=== PATIENT | male | born 1965 | race Caucasian/White ===

== ENCOUNTER 2016-10-21 06:19 | Inpatient (IN) | payer OTHER ==
--- NOTE | 2016-10-03 15:50 | HP ---
ADMISSION HISTORY AND PHYSICAL: DATE OF ADMISSION: 10/21/16 ATTENDING SURGEON: Dr. Bart Savage. CHIEF COMPLAINT: Rectal cancer. HISTORY OF PRESENT ILLNESS: This is a 51-year-old male who had been experiencing intermittent loose stools and/or rectal bleeding for the past 1-1/ 2 to 2 years. He attributed the changes to his diet and/or hemorrhoids. Eventually, he did connect with Dr. Soni for a primary care visit, which was his first in a number of years. He was referred for colonoscopy. He had never had any prior study. Colonoscopy was performed by Dr. Quintero on 05/21/16. This showed a friable 3- quarters circumferential lesion consistent with a carcinoma beginning from 10 to 12 cm from the anal verge and extending proximally about 5 cm. There were 2 additional polyps, one in the sigmoid colon and one in the ascending colon. Both of those were removed and pathology showed tubular adenoma. The friable lesion at 11 cm was positive for adenocarcinoma. The patient underwent CT of the abdomen and pelvis on 05/27/16 confirming the presence of a mass in the rectosigmoid colon measuring 4.9 x 2.6 x 4.3 cm with a couple of mildly prominent lymph nodes measuring up to 0.6 cm. His CEA at that time was 4.2. ALT and AST were in the 70s and have since come down slightly (he does drink beer on a regular basis). Subsequent CT of the chest on 06/10/16 showed a few small (less than or equal to 3 mm) right upper lobe peripheral nodules. MRI of the pelvis from that same date showed 3.5 x 4.1 x 2.8 cm rectosigmoid lesion with no apparent infiltration via on the muscularis or into perirectal fat. Lymph nodes were noted to be prominent, but less than or equal to 0.4 cm. The patient was seen by Dr. Samira Patel and Dr. Bart Wright and has completed neoadjuvant chemoradiation therapy with 5-FU, with radiation therapy completed on 07/24/16. Overall, he tolerated the therapy fairly well. He did have some anal pruritus that has responded well to local agents. He had met Dr. Savage previously when a PowerPort was placed for his chemotherapy. He met again with Dr. Savage on 09/15/16 and again today to review the indications for surgery, the risks, benefits, and alternatives. The patient understands the expected perioperative course and would like to proceed as scheduled with laparoscopic-assisted low anterior resection. There is no known family history of colorectal cancer. PAST MEDICAL HISTORY: 1. Hypertension. 2. He has some mild psoriasis. SURGERIES: He underwent right knee arthroscopy for a meniscal injury and arthroscopy of the right elbow. 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 CURRENT MEDICATIONS: 1. Metoprolol succinate extended release 25 mg once daily. 2. Amlodipine 10 mg once daily. 3. Fluocinonide 0.05% topically daily p.r.n. DRUG ALLERGIES: None known. FAMILY HISTORY: Father is alive with history of hypertension and coronary artery disease. Mother is alive and in good health. There is no known family history of anesthesia problems, bleeding or clotting disorders. SOCIAL HISTORY: The patient lives with his significant other, though states that she has been in the hospital for the past 6 weeks because of an infection problem. He also notes that his son was involved in a serious auto injury and sustained significant head injury and is in a rehab facility in [place], [place], and is stable, but overall has significant effects from his traumatic brain injury. 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 He is a former smoker of up to 1 pack per day for at least 20 years. He quit 5 years ago. He continues to chew tobacco on the order of 1 can per day. He also drinks approximately a six-pack of beer per day. He smokes marijuana on occasion. No other drug use reported. REVIEW OF SYSTEMS: General: No recent constitutional symptoms or acute illnesses other than described in the HPI. He states his weight has remained fairly stable and he has a good appetite. Cardiovascular: No chest pain or palpitations. He is treated for hypertension. Respiratory: No history of asthma or chronic cough. Smoking history as noted. GI: As above per HPI. No upper GI symptoms. : No problems reported other than some changes related to urination, presumably secondary to his radiation therapy. Endocrine: No diabetes or thyroid dysfunction. PHYSICAL EXAMINATION GENERAL: Well-nourished, well-developed male in no acute distress. VITAL SIGNS: Height 74 inches, weight 220 pounds, temperature 98.3, blood pressure 140/82, pulse 76, respirations 16. HEENT: Pupils equal, round, and reactive. EOMs intact. No conjunctival pallor. Oropharynx: Teeth in good repair. No intraoral lesions. NECK: No lymphadenopathy, thyromegaly, or masses. LUNGS: Clear to auscultation. No rales or wheezes. HEART: Regular rate and rhythm. ABDOMEN: Flat, nondistended. There is a visible bulge at the umbilicus which is palpably reducible and nontender and consistent with a small umbilical hernia (he states that this has been unchanged since childhood). Abdomen is otherwise soft, nontender, and without palpable masses or organomegaly. EXTREMITIES: No edema. Feet not examined directly. GENITALIA AND RECTAL: Not done. BACK: No spinous process or CVA tenderness. NEUROLOGICAL: Grossly intact. SKIN: Warm and dry. No suspicious rashes or lesions. IMPRESSION: Rectal cancer. PLAN: Laparoscopic-assisted low anterior resection. The patient will complete standard preoperative mechanical bowel prep with oral antibiotics. YOLA ORDONEZ CC: Dr. Royal Soni; Dr. Samira Patel; Dr. Bart Wright; Dr. Patrick Quintero* [id number]/[facility] #: [id number] [facility]
[~2016-10-21 06:19] MED LIST: Buffered Lidocaine 1% SYR 3ML* 3 ML/SYR SYRINGE INTRADERM ONE; Famotidine IV* 10 MG/ML 2 ML (20 mg) IV ONE; PROCHLORPERAZINE INJ 5 MG/ML 2 ML VIAL IV PRN; Scopolamine 1.5 mg* PATCH TRANSDERM ONE
[2016-10-21] MEDS ORDERED: Scopolamine 1.5 mg* PATCH ONE (06:58)
[2016-10-21] MEDS ORDERED: Heparin VIAL(*) 5000 UNITS/ML VIAL (FIVE THOUSAND) ONE (06:58)
[2016-10-21] MEDS ORDERED: Famotidine IV* 10 MG/ML 2 ML (20 mg) ONE (06:58)
[2016-10-21] MEDS ORDERED: Ertapenem* 1 GM in NS 0.9% 50 ML* 50 ML IVPB ONE (07:00)
[2016-10-21] MEDS ORDERED: Iohexol 180 (CONTRAST) 10 ML SDV IV ONE (07:07)
[2016-10-21] MEDS ORDERED: Bupivacaine 0.5% W/EPI SDV* 30 ML VIAL ONE (07:07)
[2016-10-21] MEDS ORDERED: KETAMINE HCL* 50 MG/ML 10 ML VIAL ONE (07:33)
[2016-10-21] MEDS ORDERED: fentaNYL* 50 MCG/ML 5 ML VIAL (250 MCG VIAL) ONE (07:33)
[2016-10-21] MEDS ORDERED: Atracurium* 10 MG/ML 10 ML VIAL ONE ×2 (07:33→11:26)
[2016-10-21] MEDS ORDERED: Midazolam* 1 MG/ML 10 ML VIAL (10 MG) ONE (07:33)
[2016-10-21] MEDS ORDERED: Glycopyrrolate IV* 0.2 MG/ML 1 ML VIAL ONE ×2 (08:59→12:47)
[2016-10-21] MEDS ORDERED: Phenylephrine INJ* 10 MG/ML 1 ML VIAL (10 MG) ONE (08:59)
[2016-10-21] MEDS ORDERED: Neostigmine Methylsulfate* 2 MG/2 ML SYRINGE ONE (08:59)
[2016-10-21] MEDS ORDERED: Propofol* 10 MG/ML 20 ML BTL IV PUSH ONE (08:59)
[2016-10-21] MEDS ORDERED: Dexamethasone IV* 4 MG/ML 1 ML (4 MG) ONE (08:59)
[2016-10-21] MEDS ORDERED: Lidocaine 2% PF * 5 ML VIAL ONE (08:59)
[2016-10-21] MEDS ORDERED: Ondansetron INJ* 2 MG/ML VIAL ONE (08:59)
[2016-10-21] MEDS ORDERED: Bupivacaine 0.5% SDV PF* 30 ML VIAL ONE (08:59)
[2016-10-21] MEDS ORDERED: EPHEDrine (Pressors)* 50 MG/ML VIAL ONE (09:31)
--- NOTE | 2016-10-21 09:34 | RAD ---
INDICATION: Bilateral retrograde pyelograms and stent placement. Rectal cancer. COMPARISON: May 27, 2016 CT. TECHNIQUE: 14 seconds fluoroscopy. FINDINGS: Bilateral retrograde pyelograms are negative for hydronephrosis. Bilateral ureteral stents placed. IMPRESSION: Procedural fluoroscopy. CPT II Codes: 6045F
[2016-10-21] MEDS ORDERED: PROCHLORPERAZINE INJ 5 MG/ML 2 ML VIAL IV PRN (10:03)
[2016-10-21] MEDS ORDERED: Hetastarch in NS* 500 ML IV PRN (10:03)
[2016-10-21] MEDS ORDERED: Nalbuphine* 20 MG/ML 1 ML VIAL IV PRN (10:03)
[2016-10-21] MEDS ORDERED: Ondansetron INJ* 2 MG/ML VIAL IV PRN (10:03)
[2016-10-21] MEDS ORDERED: Hetastarch in NS* 500 ML IV ONE (10:46)
[2016-10-21] MEDS ORDERED: Morphine INJ* 10 MG/ML 1 ML CARPUJECT ONE ×2 (11:25→14:26)
[2016-10-21] MEDS ORDERED: Ropivacaine 0.2% EPIDURAL* 200 MG/100 ML BAG EPIDURAL ONE (11:39)
[2016-10-21] MEDS ORDERED: Furosemide IV* 10 MG/ML 2 ML VIAL (20 MG) ONE (12:30)
[2016-10-21] MEDS ORDERED: Acetaminophen TAB* 325 MG PO PRN (13:41)
--- NOTE | 2016-10-21 13:47 | PN ---
Progress Note - Progress Note Note: Brief Operative Note: Preop Dx: rectal cancer POstop Dx: same Procedure: Laparoscopy; laparotomy; low anterior resection. (Bilateral ureteral stents placed by Dr. Mcelroy) Anesthesia: GET, epidural Surgeon: Janette Asst: Maliha; YOLA Mcknight; SYLVIA Bunn EBL: 150 ml Fluids: 4500 ml RL; 500 ml Hetastarch Drains: none Specimen: rectosigmoid Findings: dictated
[2016-10-21] MEDS ORDERED: fentaNYL* 50 MCG/ML 2 ML VIAL (100 MCG VIAL) ONE (13:55)
[2016-10-21] MEDS: fentaNYL* 50 MCG/ML 2 ML VIAL (100 MCG VIAL) IV PRN ×4 (13:56→14:29)
[2016-10-21] MEDS ORDERED: NS 0.9% 500 ML* 500 ML IV PRN (14:00)
[2016-10-21] MEDS: Morphine INJ* 2 MG/ML 1 ML CARPUJECT IV PRN ×2 (14:29→14:50)
[2016-10-21] MEDS: HYDROmorphone PCA* 20 MG/20 ML PCA.SYRING PCA SCH (15:49)
[2016-10-21] MEDS: Metoprolol Succinate XL TAB* 25 MG PO SCH (17:20)
[2016-10-21] MEDS: amLODIPine TAB* 5 MG PO SCH (17:20)
[2016-10-21] MEDS: Heparin VIAL(*) 5000 UNITS/ML VIAL (FIVE THOUSAND) SUBCUT SCH ×2 (17:23→22:14)
[2016-10-21] MEDS: Ropivacaine 0.2% EPIDURAL* 200 MG/100 ML BAG EPIDURAL SCH (19:57)
[2016-10-22] MEDS: Ropivacaine 0.2% EPIDURAL* 200 MG/100 ML BAG EPIDURAL SCH ×3 (05:08→20:55)
[2016-10-22] MEDS: Heparin VIAL(*) 5000 UNITS/ML VIAL (FIVE THOUSAND) SUBCUT SCH ×3 (05:55→21:35)
[2016-10-22 06:58] LABS: Hematocrit 37 % (42-52); Hemoglobin 12.6 g/dl (14.0-18.0); Mean Corpuscular HGB Conc 34 g/dl (31-36); Mean Corpuscular Hemoglobin 32 pg (27-31); Mean Corpuscular Volume 96 fL (80-94); Mean Platelet Volume 9 um3 (7.4-10.4); Red Blood Count 3.87 10^6/ul (4.0-5.4); Red Cell Distribution Width 14 % (10.5-15); White Blood Count 9.2 10^3/ul (3.5-10.8)
[2016-10-22 07:10] LABS: BUN/Creatinine Ratio 13.6 (8-20); EGFR African American 61.3 (>60); EGFR Non-African American 47.7 (>60); Potassium 4.5 mmol/L (3.5-5.0)
[2016-10-22 10:53] LABS: Call Hep C TO BE CALLED
--- NOTE | 2016-10-22 11:02 | PN ---
Progress Note - Progress Note Note: Surgery Progress S: POD #1. 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 Has had min UOP overnight; got a bolus this a.m., but none overnight. No N/V. Has been sipping on clears. Denies SOB. O: Vital Signs - 8 hr 10/22/16 10/22/16 10/22/16 03:09 04:00 06:00 Temperature 98.8 F Pulse Rate 56 Respiratory 18 16 16 Rate Blood Pressure 108/68 (mmHg) O2 Sat by Pulse 96 94 94 Oximetry 10/22/16 10/22/16 10/22/16 07:15 07:37 10:00 Temperature 100.4 F Pulse Rate 53 Respiratory 18 18 18 Rate Blood Pressure 118/69 (mmHg) O2 Sat by Pulse 95 95 95 Oximetry Intake and Output Last 24 Hours 10/20/16 10/21/16 10/22/16 10/23/16 06:59 06:59 06:59 06:59 Intake Total 7392 1000 Output Total 1025 Balance 6367 1000 Weight 217 lb 9.6 oz Intake: IV Fluids 6452 1000 ERTAPENEM 1GM 50 HEXTEND 500 LR 4500 1000 LR /c 20KCL 1402 IVPB 500 Hetastarch 500 Oral 440 Output: Wagner 875 Estimated Blood Loss 150 Heart: reg Lungs: few wheezes; doing well w/ IS (2500) Abd: few BS; midline dsg dry, intact; mild to mod bloating/tympany; soft, min tenderness Extr: no edema Urine: bloody Labs: A: s/p Low anterior rsxn for rectal Ca; third spacing and bloody urine as expected; fluid boluses as req'd; OOB and ambulate
[2016-10-22] MEDS: HYDROmorphone PCA* 20 MG/20 ML PCA.SYRING PCA SCH (11:58)
--- NOTE | 2016-10-22 12:24 | PN ---
Progress Note - Progress Note Note: Anesthesia epidural followup. 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 Had decreased urine output overnight, has recieved some fluid boluses. Site ok, s/p low anterior resection, cont current pain control.
--- NOTE | 2016-10-22 15:21 | OP ---
DATE OF OPERATION: 10/21/16 - ROOM #333 DATE OF : 63 SURGEON: Min Mcelroy MD. ANESTHESIOLOGIST: Dr. Mar. ANESTHESIA: General and epidural. PRE-OP DIAGNOSIS: Rectal carcinoma. POST-OP DIAGNOSIS: Rectal carcinoma. OPERATIVE PROCEDURE: Cystoscopy, bilateral retrograde pyelogram, left ureteral stent insertion, and right ureteral catheter insertion. INDICATIONS: Porter Parker Jr. is a 51-year-old gentleman with rectal carcinoma. He is status post radiation therapy and is now being brought in for low anterior resection. Dr. Savage had requested preoperative placement of ureteral catheter stents prior to the procedure. COMPLICATIONS: None. STENT USED: 7-Cymraes stent, left ureter and 6-Cymraes open ended catheter, right ureter. OPERATIVE FINDINGS: 1. Normal-appearing urethra. 2. Mildly enlarged prostate. 3. Small area at the junction of the posterior wall and dome of the bladder on the left side with hyperemic mucosa. 4. Normal bilateral retrograde pyelograms. DESCRIPTION OF PROCEDURE: After induction of general and epidural anesthesia, the patient was placed in dorsal lithotomy position. Sequential compression devices were in place and functioning. Initial cystoscopy revealed a normal appearing urethra, a mildly enlarged prostate. The bladder was examined. The right and left ureteral orifices were normal in position and configuration. In the superior aspect of the bladder on the left side, there was approximately 2 cm area with hyperemic mucosa, this was fairly nonspecific and could possibly be related to the radiation and certainly did not have the appearance of any sort of neoplasm. Left retrograde pyelogram was performed. There was no evidence of any obstruction or filling defect. A 7-Cymraes stent was placed on the left side with good proximal and distal positioning obtained. Attention was directed to the right side. Once again, the retrograde pyelogram was performed and was normal. A 6-Cymraes ureteral catheter was placed with the proximal aspect of the catheter in the renal pelvis. The catheter was then secured to Wagner catheter, which was placed at the end of the procedure and they were both connected to a drainage bag. The plan will be to remove the right ureteral catheter at the end of the surgical procedure and to remove the stent in my office a week or so later. CC: Bart Savage MD; Royal Soni MD; Min Mcelroy MD. * [id number]/[facility] #: [id number] [facility]
[2016-10-22] MEDS: Metoprolol Succinate XL TAB* 25 MG PO SCH (18:08)
[2016-10-22] MEDS: amLODIPine TAB* 5 MG PO SCH (18:08)
--- NOTE | 2016-10-22 20:34 | OP ---
DATE OF SURGERY: 10/21/16 - ROOM #333 DATE OF : 63 SURGEON: Dr. Savage. POKER PROP PLAYER: Dr. Jett and YOLA Wilkinson ANESTHESIOLOGIST: Amari Mar MD ANESTHESIA: General endotracheal and epidural PRE-OP DIAGNOSIS: Rectal carcinoma. POST-OP DIAGNOSIS: Rectal carcinoma. OPERATIVE PROCEDURE: Laparoscopy, laparotomy, and low anterior resection. ESTIMATED BLOOD LOSS: 150 mL. IV FLUIDS: 4.5 L crystalloid, 500 mL hetastarch. SPECIMEN: Rectum sigmoid. DRAINS: None. COMPLICATIONS: None. COUNTS: The instrument, needle, and sponge counts were correct. DESCRIPTION OF PROCEDURE: The patient was brought to the operating room and placed on the table. He was administered an epidural anesthetic. The patient initially underwent bilateral ureteral stent placement and cystoscopy by Dr. Mcelroy and that is dictated separately. After the patient was placed on the table in a split leg fashion, the legs and arms were secured, sequential compression devices were placed on both lower extremities. Warming blankets were placed. Rigid proctosigmoidoscopic examination was performed and the tumor was identified at 15 cm from the anal verge. The prep appeared to be good. The patient's abdomen was then prepped and draped in usual sterile fashion. He had received appropriate intravenous antibiotics and the time-out was performed. Local anesthetic was infiltrated at the umbilical site. The incision was curvilinear, carried to the left side due to the presence of an umbilical hernia. The abdomen was entered through the umbilical hernia defect and a 12-mm trocar was placed and carbon dioxide was insufflated to a pressure of 15 mmHg. Laparoscope was introduced and then 5-mm trocars were placed in the suprapubic midline and right lower quadrant. Inspection of the abdomen revealed the redundant sigmoid colon. Inspection in the pelvis revealed tattooing indicating the presence of the tumor in the upper rectum. The remaining peritoneal surface was inspected along the right and left lobes of the liver and the parietal surfaces revealed no evidence of any abnormalities. The initial mobilization of the colon along the white line of Toldt was performed laparoscopically using combination of sharp and blunt dissection with LigaSure. This was performed to mobilize the colon up to the splenic flexure and the mobilization proceeded down so that the sigmoid was brought to the midline. At this point, it was decided to proceed with the open portion of the procedure. The laparoscopic trocars were removed and the midline laparotomy was created from the umbilicus down to the pubic symphysis. An exploration of the abdomen was performed with inspection and palpation of the colon revealing the known mass in the rectum. No additional mass was palpated throughout the sigmoid, descending, transverse, or ascending colon. The cecum appeared normal as did the appendix. The small bowel was run proximally from the ileocecal valve to the ligament of Treitz and appeared normal. There were no palpable abnormalities on neither right or left lobe of the liver. Gallbladder was normal and the stomach palpated anterior was normal. The spleen was palpated and felt to be normal as well. Retractors were placed and the mobilization of the colon continued scoring the peritoneum on either side of the mesentery and down to the pelvis with preservation of the ureters, which were easily palpated due to the stents. The inferior mesenteric vessels were identified at the base of the mesentery and elevated and the posterior nerves were dissected free and then decision was made to divide the bowel proximally at the mid sigmoid dividing this with the KALEB 60 stapler and dividing the mesentery with LigaSure as well as between clamps ligating with 2 absorbable ties. The ЮЛИЯ was taken distal to its origin. The viability of the proximal bowel was confirmed. The proximal colon and small bowel were lapped off in the upper abdomen. Retractors were placed and dissection then proceeded in the retrorectal space preserving the fascia propria of the rectum to perform a total mesorectal excision. The [employer]. Reginald's retractor was used in this dissection and the dissection was performed with the cautery in the posterior planes. Along the lateral stalks, the combination of cautery and LigaSure was used to perform the dissection. Anteriorly, the dissection proceeded again using [employer]. Reginald's retractor and cautery. The dissection proceeded down well below the area of the tattooing in the upper rectum until there was at least a 5 cm distal margin to the tumor, which was able to be palpated through the anterior wall of the rectum. At this point, the mesorectum was divided with the LigaSure and then the rectum was stapled off with the TA-55 articulating stapler and the bowel was divided proximal to this. The specimen was brought to back table and inspected. There appeared to be about 6 or 7 cm margin to the distal portion of the tumor. The specimen was placed into formalin and submitted for pathology. The continuity of the bowel was restored by colorectal anastomosis using a 31 mm EEA stapler. Anvil was placed into the proximal bowel and pursestringed with the 2-0 Surgipro in a whipstitch fashion. The anastomosis was then performed with the EEA stapler using a double staple technique and the after completing the anastomosis, the rings were inspected and noted to be intact. The anastomosis was tested using the bubble leak test. No leak was identified. Hemostasis was assured. Irrigation was performed until clear. The viscera were returned to the abdominal cavity and the sponge, needle, and instrument counts were correct. The fascia was closed with a #1 Polysorb running. This incorporated the closure of the umbilical hernia. The skin was closed with chris and dressings applied. At the conclusion of the case, the right ureteral catheter was removed. The patient tolerated the procedure well, was extubated, and transferred to the recovery room in stable condition. CC: Samira Patel MD; Bart Wright MD; Royal Soni MD; Patrick Quintero MD; Dr. Mcelroy* [id number]/[facility] #: [id number] MTDD
[2016-10-22] MEDS: Famotidine IV* 10 MG/ML 2 ML (20 mg) IV SLOW PU SCH (20:48)
[2016-10-23] MEDS: Ropivacaine 0.2% EPIDURAL* 200 MG/100 ML BAG EPIDURAL SCH ×3 (04:13→17:18)
[2016-10-23] MEDS: Heparin VIAL(*) 5000 UNITS/ML VIAL (FIVE THOUSAND) SUBCUT SCH ×3 (05:28→21:44)
[2016-10-23] MEDS: Famotidine IV* 10 MG/ML 2 ML (20 mg) IV SLOW PU SCH ×2 (08:44→21:44)
[2016-10-23 11:18] LABS: Hematocrit 40 % (42-52); Hemoglobin 13.3 g/dl (14.0-18.0); Mean Corpuscular HGB Conc 34 g/dl (31-36); Mean Corpuscular Hemoglobin 32 pg (27-31); Mean Corpuscular Volume 96 fL (80-94); Mean Platelet Volume 8 um3 (7.4-10.4); Red Blood Count 4.16 10^6/ul (4.0-5.4); Red Cell Distribution Width 13 % (10.5-15); White Blood Count 9.8 10^3/ul (3.5-10.8)
[2016-10-23 11:36] LABS: BUN/Creatinine Ratio 16.5 (8-20); EGFR African American 121.7 (>60); EGFR Non-African American 94.7 (>60); Potassium 4.1 mmol/L (3.5-5.0)
[2016-10-23] MEDS: Metoprolol Succinate XL TAB* 25 MG PO SCH (18:00)
[2016-10-23] MEDS: amLODIPine TAB* 5 MG PO SCH (18:01)
--- NOTE | 2016-10-23 21:11 | PN ---
Progress Note - Progress Note SOAP: Subjective: [Seen this am and pm. Has no flatus, but feels he might. Pain controlled. Bloated and felt nausea at times but no vomiting. Objective: Vital Signs Temp 98.9 F 10/23/16 15:53 Pulse 61 10/23/16 15:53 Resp 18 10/23/16 16:00 BP 154/88 10/23/16 15:53 Pulse Ox 96 10/23/16 16:00 Intake & Output 10/23/16 10/23/16 10/24/16 06:59 18:59 06:59 Intake Total 2482 1237 Output Total 1825 750 Balance 657 487 Intake: IV Fluids 1622 1237 LR 734 LR /c 20KCL 888 1237 Oral 860 0 Output: Biggs 1825 750 Mild discomfort. Abd: distended with incis c/d/i; no erythema. Soft with incisional tenderness. Laboratory Results - last 24 hr 10/23/16 10/23/16 11:01 11:01 WBC 9.8 RBC 4.16 Hgb 13.3 L Hct 40 L MCV 96 H MCH 32 H MCHC 34 RDW 13 Plt Count 225 MPV 8 Neut % (Auto) 79.7 Lymph % (Auto) 7.6 L Eaton % (Auto) 11.2 H Eos % (Auto) 1.1 Baso % (Auto) 0.4 Absolute Neuts (auto) 7.8 H Absolute Lymphs (auto) 0.7 L Absolute Monos (auto) 1.1 H Absolute Eos (auto) 0.1 Absolute Basos (auto) 0 Absolute Nucleated RBC 0 Nucleated RBC % 0 Sodium 134 Potassium 4.1 Chloride 96 L Carbon Dioxide 26 Anion Gap 12 H BUN 14 Creatinine 0.85 Est GFR ( Amer) 121.7 Est GFR (Non-Af Amer) 94.7 BUN/Creatinine Ratio 16.5 Glucose 89 Calcium 9.0 Assessment: POD#2 S/P LAP LAR. Overall doing well, although ileus. Creatinine back to normal. Plan: Ice chips only. NGT if vomits. Keeping biggs until CEI out due to concern for BPH (Dr. Mcelroy recommended starting Flomax 0.4mg qhs). Awaiting path.
[2016-10-24] MEDS: Ropivacaine 0.2% EPIDURAL* 200 MG/100 ML BAG EPIDURAL SCH (00:22)
[2016-10-24] MEDS: Heparin VIAL(*) 5000 UNITS/ML VIAL (FIVE THOUSAND) SUBCUT SCH ×3 (05:50→21:50)
[2016-10-24] MEDS ORDERED: Scopolamine PATCH Remove* 1 NOTE MISC PATCH OFF ONE (06:00)
[2016-10-24] MEDS: Famotidine IV* 10 MG/ML 2 ML (20 mg) IV SLOW PU SCH ×2 (10:00→20:22)
--- NOTE | 2016-10-24 10:02 | PN ---
Progress Note - Progress Note SOAP: Subjective: He had multiple loose BMs and continues to have flatus today. He feels better. His pain has moved lower down in the incision. He feels more able to get OOB on his own and would like to be free of the IV pole, etc. He asked about the path. Objective: Vital Signs Temp 98.6 F 10/24/16 07:41 Pulse 61 10/24/16 07:41 Resp 18 10/24/16 07:41 BP 145/90 10/24/16 07:41 Pulse Ox 98 10/24/16 07:41 Intake & Output 10/23/16 10/24/16 10/24/16 18:59 06:59 18:59 Intake Total 1237 1089 Output Total 750 2550 Balance 487 -1461 Intake: IV Fluids 1237 989 LR /c 20KCL 1237 989 Oral 0 100 Output: Biggs 750 2550 Other: # Bowel Movements 2 Estimated Stool Amount Large NAD Lungs CTAB Abd distended, soft, +BS, incis C/D/I no erythema. Path pending Assessment: POD#3 s/p LAR. Improving. Plan: Wean CEI. Oral meds and full liquids, advance as tolerated. Start Flomax tonight and anticipate biggs can come out after CEI is out due to concern for BPH. Await path.
[2016-10-24] MEDS: Metoprolol Succinate XL TAB* 25 MG PO SCH (17:36)
[2016-10-24] MEDS: amLODIPine TAB* 5 MG PO SCH (17:36)
[2016-10-24] MEDS: HYDROmorphone PCA* 20 MG/20 ML PCA.SYRING PCA SCH (20:13)
[2016-10-24] MEDS: Tamsulosin CAP* 0.4 MG PO SCH (20:22)
[2016-10-24] MEDS: oxyCODONE/Acetamin 5/325 MG* TAB PO PRN (21:49)
[2016-10-25] MEDS: Heparin VIAL(*) 5000 UNITS/ML VIAL (FIVE THOUSAND) SUBCUT SCH ×3 (05:42→22:02)
[2016-10-25] MEDS: Famotidine IV* 10 MG/ML 2 ML (20 mg) IV SLOW PU SCH ×2 (08:30→20:52)
[2016-10-25] MEDS: oxyCODONE/Acetamin 5/325 MG* TAB PO PRN ×4 (10:13→23:32)
[2016-10-25] MEDS: amLODIPine TAB* 5 MG PO SCH (18:32)
[2016-10-25] MEDS: Metoprolol Succinate XL TAB* 25 MG PO SCH (18:32)
[2016-10-25] MEDS: Tamsulosin CAP* 0.4 MG PO SCH (20:52)
[2016-10-26] MEDS: Heparin VIAL(*) 5000 UNITS/ML VIAL (FIVE THOUSAND) SUBCUT SCH ×3 (06:10→21:44)
[2016-10-26] MEDS: oxyCODONE/Acetamin 5/325 MG* TAB PO PRN ×4 (06:11→21:43)
[2016-10-26] MEDS: Famotidine IV* 10 MG/ML 2 ML (20 mg) IV SLOW PU SCH ×2 (09:11→21:00)
[2016-10-26] MEDS: amLODIPine TAB* 5 MG PO SCH (17:30)
[2016-10-26] MEDS: Metoprolol Succinate XL TAB* 25 MG PO SCH (17:30)
[2016-10-26] MEDS: Tamsulosin CAP* 0.4 MG PO SCH (20:59)
[2016-10-27] MEDS: oxyCODONE/Acetamin 5/325 MG* TAB PO PRN ×2 (05:42→11:41)
[2016-10-27] MEDS: Heparin VIAL(*) 5000 UNITS/ML VIAL (FIVE THOUSAND) SUBCUT SCH (05:43)
[2016-10-27 07:35] VITALS: BP 133/87
[2016-10-27] MEDS: Famotidine IV* 10 MG/ML 2 ML (20 mg) IV SLOW PU SCH (08:03)
--- NOTE | 2016-10-27 22:36 | DS ---
DISCHARGE SUMMARY: DATE OF ADMISSION: 10/21/16 DATE OF DISCHARGE: 10/27/16 ATTENDING SURGEON: Dr. Savage. HOSPITAL COURSE: Please refer to admission history and physical for admission details. The patient was taken to the operating room on 10/21/16, preoperatively bilateral ureteral stents were placed by Dr. Mcelroy. He underwent laparoscopic- assisted low anterior resection with Dr. Savage, which was an otherwise uneventful surgery. One of the stents was removed at the end of the case, the other will be removed in Dr. Mcelroy's office on 10/29/16. Pathology showed complete pathological response with a total of 14 lymph nodes, all negative for metastatic disease (see separate report). The patient's pain was controlled with combination of epidural and COLORING ROOM MAN initially and then he was gradually transitioned to oral pain medication. Diet was also gradually advanced once he was having intestinal function. Dr. Mcelroy's suggestion was to start him on Flomax 0.4 mg q.h.s. in anticipation of Wagner removal, which was done on 10/26/16. PHYSICAL EXAMINATION: As of the morning of discharge, temperature 98, blood pressure 133/87, pulse 66, respirations 16, room air saturation 95%. General: Well-nourished and in no acute distress. Heart: Regular rate and rhythm. Lungs: Clear to auscultation. Abdomen: Healing midline incision without evidence of infection, soft, minimally tender to palpation. Extremities: No edema. DISCHARGE MEDICATIONS: Will include his usual preoperative medications. He will also continue Flomax 0.4 mg q.h.s. until or as directed by Dr. Mcelroy. FOLLOWUP INSTRUCTIONS: He has a followup with our office on 11/03/[address] Mcelroy on 10/29/16. YOLA ORDONEZ CC: [facility]; Dr. Min Mcelroy; Dr. Royal Soni; Dr. Patrick Quintero ; Dr. Samira Patel; Dr. Bart Wright* [id number]/[facility] #: [id number] [facility]
== END 2016-10-27 11:45 | disposition home or self-care (01) | DRG 331 ==
LOC: AA 06:19 → SSU 15:09
PROVIDERS: ADMIT Surgery; ATTEND Surgery
PROC: 0WJG4ZZ Inspection of Peritoneal Cavity, Percutaneous Endoscopic Approach (ICD-10-PCS; 2016-10-21)
PROC: 0WQF0ZZ Repair Abdominal Wall, Open Approach (ICD-10-PCS; 2016-10-21)
PROC: 0DBP0ZZ Excision of Rectum, Open Approach (ICD-10-PCS; 2016-10-21)
PROC: BT14ZZZ Fluoroscopy of Kidneys, Ureters and Bladder (ICD-10-PCS; 2016-10-21)
PROC: 0T778DZ Dilation of Left Ureter with Intraluminal Device, Via Natural or Artificial Opening Endoscopic (ICD-10-PCS; 2016-10-21)
PROC: 0T9 Urinary System, Drainage (ICD-10-PCS; 2016-10-21)
PROC: 0WJP4ZZ Inspection of Gastrointestinal Tract, Percutaneous Endoscopic Approach (ICD-10-PCS; principal; 2016-10-21 08:00)
PROC: 0DBN0ZZ Excision of Sigmoid Colon, Open Approach (ICD-10-PCS; 2016-10-21 08:00)
DX: C20 Malignant neoplasm of rectum (principal); I10 Essential (primary) hypertension; L40.9 Psoriasis, unspecified; Z82.49 Family history of ischemic heart disease and other diseases of the circulatory system; Z87.820 Personal history of traumatic brain injury; Z87.891 Personal history of nicotine dependence; K42.9 Umbilical hernia without obstruction or gangrene; N40.0 Benign prostatic hyperplasia without lower urinary tract symptoms
CPT/HCPCS: 36415; 74420; 80048; 85025; 86703; 86803; 88305; 88309; 88331; 94760; A9270-GY; C1776; C1876; J0780; J1100; J1170; J1335; J1644; J1940; J2250; J2270; J2405; J2704; J2795; J3010; J3480